=== PATIENT | female | born 1965 | race Caucasian/White ===

== ENCOUNTER 2017-07-15 15:26 | Emergency (ER) | payer MEDICAID, OTHER ==
[~2017-07-15] VITALS: Ht 157.5 cm; Wt 57.0 kg
[2017-07-15 15:31] VITALS: Ht 157.5 cm; Wt 57.0 kg
[2017-07-15] MEDS ORDERED: KETOROLAC 60 MG INJ IM STA (15:54)
[2017-07-15 16:22] LABS: BASOPHIL # 0.1 10^3/ul (0.0-0.1); BASOPHILS % 0.7 % (0.0-2.0); EOSINOPHILS # 0.1 10^3/ul (0.0-0.5); EOSINOPHILS % 1.1 % (0.0-7.0); HEMATOCRIT 34.3 % (37.0-47.0); HEMOGLOBIN 11.4 g/dl (12.0-16.0); LYMPHOCYTES # 2.1 10^3/ul (0.8-2.9); LYMPHOCYTES % 27.6 % (15.0-51.0); MEAN CORPUSCULAR HEMOGLOBIN 28.5 pg (29.0-33.0); MEAN CORPUSCULAR HGB CONC 33.2 g/dl (32.0-37.0); MEAN CORPUSCULAR VOLUME 85.8 fl (82.0-101.0); MEAN PLATELET VOLUME 9.8 fl (7.4-10.4); MONOCYTE # 0.4 10^3/ul (0.3-0.9); MONOCYTES % 4.7 % (0.0-11.0); NEUTROPHILS % 65.6 % (39.0-77.0); PLATELET COUNT 334 10^3/UL (140-415); RED CELL DISTRIBUTION WIDTH 13.2 % (11.5-14.5); WHITE BLOOD COUNT 7.6 10^3/ul (4.8-10.8)
[2017-07-15 16:42] LABS: ALBUMIN 4.9 g/dl (3.3-4.9); ALBUMIN/GLOBULIN RATIO 1.36; BILIRUBIN,INDIRECT 0.2 mg/dl (0-1.1); BILIRUBIN,TOTAL 0.2 mg/dl (0.2-1.3); CALCIUM 9.4 mg/dl (8.4-10.2); CREATININE 0.66 mg/dl (0.44-1.00); POTASSIUM 3.7 mmol/L (3.5-5.1); TOTAL PROTEIN 8.5 g/dl (6.1-8.1)
[2017-07-15 16:46] LABS: ADD UMIC YES; UR ASCORBIC ACID NEGATIVE (NEGATIVE); UR BACTERIA FEW /HPF (NONE SEEN); UR BILIRUBIN (Dip) NEGATIVE (NEGATIVE); UR BLOOD (Dip) 3+ mg/dL (NEGATIVE); UR CLARITY CLEAR (CLEAR); UR COLOR RED (YELLOW); UR GLUCOSE (Dip) NEGATIVE (NEGATIVE); UR KETONES (Dip) NEGATIVE (NEGATIVE); UR LEUKOCYTE ESTERASE (Dip) NEGATIVE Leu/ul (NEGATIVE); UR NITRITE (Dip) NEGATIVE (NEGATIVE); UR RBC 147 /HPF (0-5); UR SPECIFIC GRAVITY (Dip) 1.002 (1.003-1.030); UR TOTAL PROTEIN (Dip) 2+ mg/dl (NEGATIVE); UR UROBILINOGEN (Dip) NEGATIVE (NEGATIVE)
--- NOTE | 2017-07-15 17:09 | RADRPT ---
PROCEDURE: Pelvic ultrasound. CLINICAL INDICATION: Pelvic pain and vaginal bleeding TECHNIQUE: Stern scale, color doppler, spectral doppler ultrasound of the pelvis was performed with transabdominal and transvaginal transducers. COMPARISON: No prior studies are available for comparison. FINDINGS: Uterus: Position: Anteverted. Normal myometrial echogenicity. Normal appearance of the endometrium. Ovaries: Normal sized ovaries with preserved blood flow. No adnexal masses. Free fluid: None. Measurements: Endometrium (cm): 0.7 Uterus (cm): 9.6 x 4.9 x 5.2 Right ovary (cm): 2.8 x 1.6 x 1.8 Left ovary (cm): 3.5 x 1.6 x 2.4 IMPRESSION: Normal examination. RPTAT: AADD .Rodriguez Lyn MD, Date Time Electronically viewed and signed by .Rodriguez Lyn MD, MD on 07/15/2017 17:09 .B/
[2017-07-15] MEDS ORDERED: IBUP-1542 PO (17:23)
--- NOTE | 2017-07-15 17:38 | ERD ---
ER Documentation Chief Complaint Date/Time DATE: 07/15/17 TIME: 17:34 Chief Complaint Complains of vag bleed since today HPI This is a 52-year-old female presents to the ER with vaginal bleeding that started 3 weeks ago. Patient has been having irregular periods and seating of this year, and she states that today she began to have severe vaginal bleeding with blood clots. Patient states she had to use a diaper. Patient does have a history of fibroids. She admits to pelvic cramping. The pain radiates to her back. Pain is severe and constant. Patient has seen OB for this problem, however she told her to wait until her period goes away to see if fibroids diminish or go away. Patient denies any urinary frequency or dysuria. She denies any vaginal discharge. ROS 12 point review of systems was done, all negative except per HPI. Medications Home Meds Active Scripts Ibuprofen* (Ibuprofen*) 600 Mg Tablet, 600 MG PO Q6 for 7 Days, TAB Prov:YANICK,PEDRO C 07/15/17 Ibuprofen* (Motrin*) 600 Mg Tab, 600 MG PO Q6, #30 TAB Prov:YANICKPEDRO C 07/15/17 Allergies Allergies: Coded Allergies: Penicillins (Verified Allergy, Intermediate, 07/15/17) sumatriptan (Verified Allergy, Intermediate, 07/15/17) PMhx/Soc History of Surgery: Yes () Anesthesia Reaction: No Hx Neurological Disorder: Yes (migraines) Hx Respiratory Disorders: No Hx Cardiac Disorders: No Hx Psychiatric Problems: No Hx Miscellaneous Medical Probl: Yes (uterine fibroids) Hx Alcohol Use: No Hx Substance Use: No Hx Tobacco Use: No Smoking Status: Never smoker Physical Exam Vitals Vital Signs Date Time Temp Pulse Resp B/P Pulse Ox O2 Delivery O2 Flow Rate FiO2 07/15/17 15:31 98.8 79 20 129/59 98 Physical Exam GENERAL: The patient is well developed and appropriate for usual state of health , in no apparent distress. HEENT: Atraumatic. CHEST: Clear to auscultation bilaterally. There are no rales, wheezes or rhonchi. HEART: Regular rate and rhythm. No murmurs, clicks, rubs or gallops. ABDOMEN: Soft, nontender and nondistended. Good bowel sounds. No rebound or guarding. No gross peritonitis. No gross organomegaly or masses. No Saldaña sign or McBurney point tenderness. BACK: No midline or flank tenderness. NEURO: Alert and oriented SKIN: The skin is warm and dry. Result Diagram: 07/15/17 1610 07/15/17 1610 Results 24 hrs Laboratory Tests Test 07/15/17 16:10 07/15/17 16:25 White Blood Count 7.610^3/ul Red Blood Count 4.0010^6/ul Hemoglobin 11.4g/dl Hematocrit 34.3% Mean Corpuscular Volume 85.8fl Mean Corpuscular Hemoglobin 28.5pg Mean Corpuscular Hemoglobin Concent 33.2g/dl Red Cell Distribution Width 13.2% Platelet Count 16246^3/UL Mean Platelet Volume 9.8fl Neutrophils % 65.6% Lymphocytes % 27.6% Monocytes % 4.7% Eosinophils % 1.1% Basophils % 0.7% Nucleated Red Blood Cells % 0.0/100WBC Neutrophils # (Manual) 510^3/ul Lymphocytes # 2.110^3/ul Monocytes # 0.410^3/ul Eosinophils # 0.110^3/ul Basophils # 0.110^3/ul Nucleated Red Blood Cells # 0.010^3/ul Sodium Level 137mmol/L Potassium Level 3.7mmol/L Chloride Level 101mmol/L Carbon Dioxide Level 24mmol/L Anion Gap 16 Blood Urea Nitrogen 11mg/dl Creatinine 0.66mg/dl Glucose Level 95mg/dl Calcium Level 9.4mg/dl Total Bilirubin 0.2mg/dl Direct Bilirubin 0.00mg/dl Indirect Bilirubin 0.2mg/dl Aspartate Amino Transf (AST/SGOT) 21IU/L Alanine Aminotransferase (ALT/SGPT) 28IU/L Alkaline Phosphatase 92IU/L Total Protein 8.5g/dl Albumin 4.9g/dl Globulin 3.60g/dl Albumin/Globulin Ratio 1.36 Urine Color RED Urine Clarity CLEAR Urine pH 6.0 Urine Specific [place] 1.002 Urine Ketones NEGATIVEmg/dL Urine Nitrite NEGATIVEmg/dL Urine Bilirubin NEGATIVEmg/dL Urine Urobilinogen NEGATIVEmg/dL Urine Leukocyte Esterase NEGATIVELeu/ul Urine Microscopic RBC 147/HPF Urine Microscopic WBC 12/HPF Urine Bacteria FEW/HPF Urine Hemoglobin 3+mg/dL Urine Glucose NEGATIVEmg/dL Urine Total Protein 2+mg/dl Current Medications Medications (Trade) Dose Ordered Sig/Agustin Route PRN Reason Start Time Stop Time Status Last Admin Dose Admin Ketorolac Tromethamine (Toradol) 60 mg ONCE STAT IM 07/15/17 15:54 07/15/17 15:58 DC Procedures/MDM This is a 52-year-old female presents to the ER with vaginal bleeding that started 3 weeks ago this is likely dysfunctional uterine bleeding. There is no evidence of fibroids on ultrasound. Patient does have slight anemia however it is not significant enough to where he needs transfusion. Patient is hemodynamically stable and her vital signs are normal. Patient was told to follow-up with her OB regarding her dysfunctional uterine bleeding, I do not feel comfortable giving patient Provera she is 52 years old and this could cause a higher risk of clots. Patient needs to follow-up within 1-2 days return to ER sooner if symptoms worsen. My medical decision making shared with the patient she understands and agrees with plan. Departure Diagnosis: Primary Impression: Dysfunctional uterine bleeding Condition: Stable Patient Instructions: Dysfunctional Uterine Bleeding Additional Instructions: Llame al doctor MIGUEL y cielo magda STEVE PARA DENTRO DE 1-2 [place].Dgale a la secretaria que nosotros le instruimos hacer esta steve.Avise o llame si martinez condicin se empeora antes de la steve. Regresa aqui si peor o no mejor. PEDRO HERNDON Jul 15, 2017 17:38
== END 2017-07-15 17:53 | disposition home or self-care (01) ==
LOC: FTE 15:26
DX: N93.8 Other specified abnormal uterine and vaginal bleeding (principal)
CPT/HCPCS: 76856; 80053; 81001; 85025; J1885; Z7502

== ENCOUNTER 2018-07-16 12:27 | Emergency (ER) | END 2018-07-16 17:27 | disposition home or self-care (01) ==

== ENCOUNTER 2018-11-20 10:17 | Emergency (ER) | payer OTHER ==
[~2018-11-20] VITALS: Wt 60.6 kg
[~2018-11-20 10:17] MED LIST: IBUP-1542 PO; MED4DP PO
[2018-11-20] MEDS ORDERED: KETOROLAC 60 MG INJ IM STA (11:11)
[2018-11-20] MEDS ORDERED: IBUP-1542 PO (11:15)
--- NOTE | 2018-11-20 11:25 | ERD ---
ER Documentation Chief Complaint Chief Complaint LOW BACK PAIN X1 DAY, HX OF SCIATICA HPI 53-year-old female with history of rheumatoid arthritis and sciatica presents with back pain incurred 8 PM yesterday at work. 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 Patient was here with similar back pain in July 16, lumbar x-rays were taken results were negative. Patient is ambulatory. Denies saddle numbness, incontinence, pain only at night, weight loss, night sweats, fatigue, focal neurological deficits. Past medical history: Rheumatoid arthritis, sciatica. Allergies to medications: denies. Surgeries: C- section. ETOH, drug, or tobacco use: denies. ROS All systems reviewed and are negative except as per history of present illness. Medications Home Meds Active Scripts Ibuprofen* (Motrin*) 600 Mg Tab, 600 MG PO Q6 for pain, #30 TAB 0 Refills Prov:OSBALDO GARCÍA 11/20/18 Methylprednisolone* (Medrol* DOSE PACK) 4 Mg/Dose-Pack Tab.ds.pk, 4 MG PO . DIRECTED, #1 PACKET Prov:CONRAD NICHOLSON PA-C 07/16/18 Ibuprofen* (Motrin*) 600 Mg Tab, 600 MG PO Q6, #30 TAB Prov:CONRAD NICHOLSON PA-C 07/16/18 Ibuprofen* (Ibuprofen*) 600 Mg Tablet, 600 MG PO Q6 for 7 Days, TAB Prov:PEDRO HERNDON 07/15/17 Ibuprofen* (Motrin*) 600 Mg Tab, 600 MG PO Q6, #30 TAB Prov:PEDRO HERNDON 07/15/17 Allergies Allergies: Coded Allergies: Penicillins (Verified Allergy, Intermediate, 11/20/18) sumatriptan (Verified Allergy, Intermediate, 11/20/18) PMhx/Soc History of Surgery: Yes () Anesthesia Reaction: No Hx Neurological Disorder: Yes (migraines) Hx Respiratory Disorders: No Hx Cardiac Disorders: No Hx Psychiatric Problems: No Hx Miscellaneous Medical Probl: Yes (uterine fibroids) Hx Alcohol Use: No Hx Substance Use: No Hx Tobacco Use: No Smoking Status: Never smoker FmHx Family History: No diabetes, No coronary disease, No other Physical Exam Vitals Vital Signs Date Temp Pulse Resp B/P (MAP) Pulse Ox O2 O2 Flow FiO2 Time Delivery Rate 11/20/18 98.0 79 16 135/83 98 12:00 (100) 11/20/18 97.8 85 17 148/83 98 10:19 (104) Physical Exam Const: No acute distress Resp: Clear to auscultation bilaterally Cardio: Regular rate and rhythm, no murmurs Abdomen: Soft, non tender, non distended. Normal bowel sounds. No suprapubic tenderness Back: Limited flexion. Positive straight leg raise. No midline or flank tenderness. No bony deformities or step offs. No masses, ecchymoses, or lesions noted. Neur: No saddle numbness. Psych: Normal Mood and Affect Results 24 hrs Current Medications Medications Dose Sig/Agustin Start Time Status Last (Trade) Ordered Route PRN Stop Time Admin Dose Reason Admin Ketorolac 60 mg ONCE STAT 11/20/18 DC 11/20/18 Tromethamine IM 11:11 11:49 (Toradol) 11/20/18 11:13 Procedures/MDM ER Course: Patient given Toradol IM. MDM: 53-year-old female with history of rheumatoid arthritis and sciatica presents with back pain incurred 8 PM yesterday at work. 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 Patient was here with similar back pain in July 16, lumbar x-rays were taken results were negative. Low suspicion for epidural abscess, cauda equina, pyelonephritis, aortic dissection, spine fracture, or other emergent conditions based on patient history and exam findings. In addition patient had received x-rays on the and were negative. Findings consistent with sciatica versus paravertebral muscle strain. Patient given Toradol IM and discharged with prescription for ibuprofen. Patient discharged with strict ER precautions. Patient advised to follow up with PMD. All questions answered at discharge. Departure Diagnosis: Primary Impression: Lower back pain Chronicity: acute Back pain laterality: bilateral Sciatica presence: with sciatica Sciatica laterality: sciatica laterality unspecified Qualified Codes: M54.40 - Lumbago with sciatica, unspecified side Condition: Stable Patient Instructions: Back Pain (Acute Or Chronic) Additional Instructions: FOLLOW UP WITH YOUR PRIMARY CARE PHYSICIAN TOMORROW.Return to this facility if you are not improving as expected. OSBALDO GARCÍA Nov 20, 2018 11:25
[2018-11-20 12:00] VITALS: BP 135/83; PULSE 79; RESP 16
== END 2018-11-20 12:00 | disposition home or self-care (01) ==
LOC: FTE 10:17
DX: M54.40 Lumbago with sciatica, unspecified side (principal)
CPT/HCPCS: 96372; J1885; Z7502